=== PATIENT | female | born 1960 | race Caucasian/White ===

== ENCOUNTER 2021-03-24 14:59 | Outpatient (REF) | payer BC, SELFPAY | END 2021-03-24 15:00 | disposition home or self-care (01) | LOC: NCHCN 14:59 | PROVIDERS: PCP Family Medicine; Visit Provider Nurse Practitioner Family | DX: J02.9 Acute pharyngitis, unspecified (principal) | CPT/HCPCS: 87070 ==

== ENCOUNTER 2024-10-17 15:50 | Outpatient (CLI) | payer MEDICAID, SELFPAY ==
--- NOTE | 2024-10-17 11:35 | DI.RAD_ITS ---
Exam(s) XR TOE RT FIFTH EXAM: XR TOE RT FIFTH CLINICAL HISTORY: recurrent cellulitis, ? osteo,L03.031. TECHNIQUE: 2D digital imaging was performed. COMPARISON: No exams were available for comparison FINDINGS: BONES: No acute fracture is present. No bony destructive lesion is seen. JOINTS: No dislocation present. SOFT TISSUE: Normal soft tissue swelling of the 5th toe. No abnormal gas collection or foreign body. IMPRESSION: No plain film evidence of osteomyelitis. DATA REPOSITORY: RADIATION DOSE DELIVERED:
== END 2024-10-17 16:10 ==
PROVIDERS: PCP Nurse Practitioner Family; Visit Provider Family Medicine
DX: L03.031 Cellulitis of right toe (principal)
CPT/HCPCS: 73660

== ENCOUNTER 2024-11-14 16:30 | Emergency (ER) | payer BC, SELFPAY ==
[2024-11-14 16:33] VITALS: BP 164/114; PULSE 108; RESP 20; TEMP 37.1; O2SAT 95
[2024-11-14 16:38] VITALS: BP 164/114; PULSE 108; RESP 20; TEMP 37.1; O2SAT 95
--- NOTE | 2024-11-14 17:15 | DI.CT_ITS ---
Exam(s) CT ABDOMEN PELVIS W EXAM: CT ABDOMEN PELVIS W CLINICAL HISTORY: RUQ pain. TECHNIQUE: Imaging Protocol: Axial computed tomography images with coronal and sagittal reformatted images were created and reviewed CONTRAST MATERIAL: Intravenous: Omnipaque 350 Contrast volume:75 ml Oral: no COMPARISON: No exams were available for comparison FINDINGS: ABDOMEN and PELVIS: Lung Bases: No acute findings. Liver: Normal density. No suspicious mass. Gallbladder and biliary tract: No radiodense calculus. No wall thickening or pericholecystic fluid. No biliary dilation. Pancreas: Normal density. No abnormal calcifications or inflammatory process. No evidence of mass. Spleen: Normal. Kidneys: Normal size, contour and axis. No radiodense stones. No obstructive uropathy. No suspicious masses seen. Adrenal glands: No masses seen. Vasculature: Abdominal aorta non-dilated. Soft tissues: Small fat containing umbilical hernia. Bladder: No gross wall thickening. No calculi.No focal mass. Bowel: No obstruction. No bowel wall thickening. Appendix normal. The cecum projects some transversely toward the midline. This could indicate free mesenteric mobility. There are innumerable diverticula throughout the colon. Normal quantity of stool. Peritoneal cavity: No ascites. No focal collection. No mesenteric inflammatory response. No free air. Bones: Degenerative changes in the lower lumbar spine, greatest at L5-S1. There is mild spondylolisthesis at this level secondary to facet joint degenerative changes. Reproductive organs: Calcified uterine fibroid. Lymph nodes: No pathologically enlarged lymph nodes. IMPRESSION:: No acute abnormality in the abdomen or pelvis. The preliminary [facility] report was reviewed. RADIATION DOSE DELIVERED: 466.17mGy.cm Total DLP DATA REPOSITORY: All CT scans at this facility are submitted to the National Radiology Data Registry (NRDR) Dose Index Registry (DIR) with the [employer] (A[employer]). RADIATION OPTIMIZATION: All CT scans at this facility use at least one of these dose optimization techniques: automated exposure control; mA and/or kV adjustment per patient size (includes targeted exams where dose is matched to clinical indication); or iterative reconstruction.
--- NOTE | 2024-11-14 17:15 | RT.EKG_ITS ---
APPROVED REPORT Exam: Resting ECG Reason for Exam: epigastric pain Patient Location: E HR:85 bpm ECG Measurements Heart Rate 85 AXIS WA 178 P 44 QRSd 96 QRS 25 QT 360 T 6 QTc 428 Conclusion Sinus rhythm...normal P axis, V-rate 60- 99 Normal Electrocardiogram
[2024-11-14] MEDS: ACETAMINOPHEN 500 MG/50 ML BAG 200 MG IVPB (17:27)
[2024-11-14 17:43] LABS: Abs Immature Grans 0.01 10^3/uL (0.0-0.06); HCT 41.2 % (36.0-46.0); HGB 13.5 g/dL (11.2-15.7); Immature Grans % 0.2 %; MCH 31.5 pg (27.0-33.0); MCHC 32.8 % (32.0-36.0); MCV 96 fL (80-95); MPV 9.1 fL (8.0-11.0); Platelet Count 196 10^3/uL (130-400); RBC 4.28 10^6/uL (3.93-5.22); RDW 12.7 % (11.7-14.6); RDW-SD 45.0 fL; WBC 5.84 10^3/uL (4.4-10.8)
[2024-11-14 17:46] LABS: Glucose Negative (Negative)
[2024-11-14 17:53] LABS: C & S Indicated? No; WBC Negative HPF (0-5)
[2024-11-14 18:01] LABS: ALT 51 U/L (14-59); AST 29 U/L (15-37); Albumin 4.3 g/dL (3.4-5.0); Alkaline Phosphatase 47 U/L (46-116); Anion Gap 7.6 mmol/L (3-11); BUN 15 mg/dL (7-18); Bilirubin, Total 0.4 mg/dL (0.2-1.0); CO2 30.4 mmol/L (21.0-32.0); Calcium 9.5 mg/dL (8.5-10.1); Chloride 103 mmol/L (98-107); Estimated GFR 82.23 (mL/min/1.73m2); Glucose 105 mg/dL (74-106); Lipase 42 U/L (<78); Potassium 3.9 mmol/L (3.5-5.1); Sodium 141 mmol/L (136-145); Total Protein 7.6 g/dL (6.4-8.2)
[2024-11-14] MEDS: Normal Saline - Diluent 50 ML VIAL IJ (18:57)
[2024-11-14] MEDS: Normal Saline Flush 10 ML SYR IVP (18:57)
[2024-11-14] MEDS: Omnipaque 350 MG/ML 100 ML BTL IJ (18:58)
--- NOTE | 2024-11-14 19:27 | DI.[facility]_ITS ---
PROCEDURE INFORMATION: Exam: CT Abdomen And Pelvis With Contrast Exam date and time: 11/14/2024 6:55 PM Age: 64 years old Clinical indication: Abdominal pain; Localized; Right upper quadrant (ruq); Ruq pain TECHNIQUE: Imaging protocol: Computed tomography of the abdomen and pelvis with contrast. Radiation optimization: All CT scans at this facility use at least one of these dose optimization techniques: automated exposure control; mA and/or kV adjustment per patient size (includes targeted exams where dose is matched to clinical indication); or iterative reconstruction. Contrast material: OMNIPAQUE 350; Contrast volume: 75 ml; Contrast route: INTRAVENOUS (IV); COMPARISON: No relevant prior studies available. FINDINGS: Lungs: Lung bases clear. Liver: Small indeterminate hypoattenuating hepatic lesion, incompletely characterized but most likely a small cyst or hemangioma. Gallbladder and biliary ducts: Gallbladder partially collapsed. No calcified gallstones seen. No biliary dilatation. Pancreas: Normal appearing pancreas. Spleen: Normal appearing spleen. Adrenal glands: Normal appearing adrenal glands. Kidneys and ureters: Small indeterminate hypoattenuating renal lesions, not well characterized but statistically most likely renal cysts. No hydronephrosis. No obstructing ureteral stones. Stomach and bowel: No oral contrast. Stomach partially decompressed. No small bowel dilatation to suggest obstruction. Cecum located in the right mid abdomen suggesting free mobility on an independent mesentery. Extensive colonic diverticulosis. No evidence of diverticulitis or colitis. Appendix: Normal appendix. Intraperitoneal space: No gross ascites or free air. Vasculature: Normal caliber abdominal aorta. Lymph nodes: No pathologically enlarged mesenteric, retroperitoneal, or pelvic sidewall lymph nodes. Urinary bladder: Urinary bladder partially collapsed but grossly unremarkable, as seen. Reproductive: Normal-sized uterus. 2.3 cm calcified uterine leiomyoma. Normal-appearing left ovary. Right ovary partially obscured and not well evaluated but normal in size. Bones/joints: No acute fracture seen among the bones of the abdomen or pelvis. Moderate discogenic degeneration at L3-L4. Apparent spondylolysis on the left at L5 with minimal anterolisthesis of L5 on S1 and prominent degeneration of the L5-S1 disc. Apparent fusion across the right L5-S1 facet joint. Moderate-severe narrowing of the right L5-S1 neural foramen with deformity of the right L5 nerve root, image 44 of series 6. Soft tissues: Small fat containing ventral hernia at the umbilicus. IMPRESSION: 1. No acute bowel pathology demonstrated. Extensive colonic diverticulosis but no evidence of diverticulitis or colitis. 2. Small fat containing ventral hernia at the umbilicus. 3. Gallbladder partially decompressed. No calcified gallstones or biliary dilatation. Dictated and Authenticated by: Emile Knott MD. Orderin Karan Stringer MD
[2024-11-14 20:13] VITALS: PULSE 85; RESP 18; O2SAT 97
[2024-11-14 20:16] VITALS: PULSE 88; RESP 18; O2SAT 98
--- NOTE | 2024-11-14 23:14 | ED.GENADUL_ITS ---
Discharge Plan Disposition Patient Disposition: Home Condition: Stable Discharge Details Clinical Impression: Abdominal pain, acute, right upper quadrant Primary Care Provider: Kavya Medina ED Provider: Siomara Russo Home Meds and New Rx's Prescriptions: Continued lisinopril 20 mg tablet 20 mg PO DAILY Discharge Instructions Instructions: Diverticulosis (DC), Abdominal Pain, Adult ED Additional Instructions: please follow-up for ultrasound tomorrow, do not eat prior to US of your gallbladder you have diverticulosis, but no evidence of infection your labs look great, aside from a small amount of blood in your urine without evidence of infection please have urinalysis rechecked with your doctor in a few weeks tylenol as needed for pain recheck with pcp this week Referrals: Kavya Medina [Primary Care Provider, Medicine] Discharge Orders Other Ambulatory Orders: US abdomen limited (STAT) Timeframe: 20241115 Facility: [facility] - Location: DIAGNOSTIC IMAGING Ordered By: Siomara Russo Discharge Data Discharge Date/Time-TO BE ENTERED AT DEPARTURE: 11/14/24 20:16 HPI General Date/Time Provider Initiated Documentation: 11/14/24 17:02 . HPI Narrative: This 64-year-old female presents with right upper quadrant pain from [facility]. She states the pain has been present for approximately 3 days. She den ies any fever or chills. She denies any chest pain or shortness of breath. Denies history of similar concerns in the past. Denies any nausea or vomiting. States she has had some urinary frequency but denies blood in her urine. Did have some watery diarrhea this morning denies recent antibiotic use. Denies history of worsening symptoms with food or fluids. Denies increased pain with deep breathing. Related Data Home Medications ?Medication ?Instructions ?Recorded ?Confirmed lisinopril 20 mg tablet 20 mg PO DAILY 10/17/2411/30 Allergies Allergy/AdvReac Type Severity Reaction Status Date / Time No Known Allergies Allergy Unverified 11/14/24 15:54 General Stated Complaint: Abd Prob DESTINEY: 3 Exam Narrative Exam Narrative: Alert and oriented 64-year-old female in no acute distress, mild right flank tenderness and right upper quadrant tenderness on assessment no rebound or guarding lungs clear to auscultation no distress Course Vital Signs Vital signs: Vital Signs Temperature 37.1 C 11/14/24 16:33 Pulse 108 H 11/14/24 16:33 Respiratory Rate 20 11/14/24 16:33 Blood Pressure 164/114 H 11/14/24 16:33 Pulse Oximetry 95 11/14/24 16:33 Temperature 37.1 C 11/14/24 16:38 Temperature Source Oral 11/14/24 16:38 Pulse 88 11/14/24 20:16 Respiratory Rate 18 11/14/24 20:16 Blood Pressure 164/114 H 11/14/24 16:38 Blood Pressure Position Sitting 11/14/24 16:38 Pulse Oximetry 98 11/14/24 20:16 Oxygen Delivery Method Room Air 11/14/24 20:16 Oxygen Flow Rate 0 11/14/24 20:16 Pain Level 2 11/14/24 20:13 Lab/Test Results Lab/Test Results: 11/14/24 16:43 Urine - Clean Catch Urine Culture - Pending Laboratory Tests Range/Units 11/14/24 11/14/24 16:43 17:32 WBC (4.4-10.8) 10^3/uL 5.84 RBC (3.93-5.22) 10^6/uL 4.28 Hgb (11.2-15.7) g/dL 13.5 Hct (36.0-46.0) % 41.2 MCV (80-95) fL 96 H MCH (27.0-33.0) pg 31.5 MCHC (32.0-36.0) % 32.8 RDW (11.7-14.6) % 12.7 Plt Count (130-400) 10^3/uL 196 MPV (8.0-11.0) fL 9.1 Immature Gran % % 0.2 Neutrophils % % 63.6 Lymphocytes % % 27.6 Monocytes % % 7.4 Eosinophils % % 0.9 Basophils % % 0.3 Nucleated RBC % (0.0-0.3) % 0.0 Absolute Neutrophils (1.2-6.7) 10^3/uL 3.72 Absolute Lymphocytes (1.2-3.4) 10^3/uL 1.61 Absolute Monocytes (0.1-0.8) 10^3/uL 0.43 Absolute Eosinophils (0.0-0.7) 10^3/uL 0.05 Absolute Basophils (0.0-0.2) 10^3/uL 0.02 Sodium (136-145) mmol/L 141 Potassium (3.5-5.1) mmol/L 3.9 Chloride (98-107) mmol/L 103 Carbon Dioxide (21.0-32.0) mmol/L 30.4 Anion Gap (3-11) mmol/L 7.6 BUN (7-18) mg/dL 15 Creatinine (0.55-1.02) mg/dL 0.8 Est GFR (CKD-EPI 2020) (mL/min/1.73m2) 82.23 Glucose (74-106) mg/dL 105 Calcium (8.5-10.1) mg/dL 9.5 Total Bilirubin (0.2-1.0) mg/dL 0.4 AST (15-37) U/L 29 ALT (14-59) U/L 51 Alkaline Phosphatase (46-116) U/L 47 Total Protein (6.4-8.2) g/dL 7.6 Albumin (3.4-5.0) g/dL 4.3 Lipase (<78) U/L 42 Urine Color (Yellow) Yellow Urine Clarity (Clear) Clear Urine pH (5-8) 6.5 Ur Specific [place] (1.005-1.025) 1.010 Urine Protein (Neg-Trace) mg/dL Negative Urine Ketones (Negative) mg/dL Negative Urine Blood (Negative) Moderate H Urine Nitrite (Negative) Negative Urine Bilirubin (Negative) Negative Urine Urobilinogen (Up to 0.2) mg/dL 0.2 Ur Leukocyte Esterase (Negative) Negative Urine RBC (0-2) HPF 5-10 H Urine WBC (0-5) HPF Negative Ur Epithelial Cells (Negative) HPF Rare Urine Crystals (Negative) HPF Negative Urine Bacteria (Negative) HPF Negative Urine Casts (Negative) LPF Negative Urine Mucus (Negative) Negative Ur Culture Indicated? No Urine Glucose (Negative) mg/dL Negative Medical Decision Making EKG does not show evidence of acute ischemia, please see attending's recommendation, CT abdomen and pelvis shows small hernia diverticulosis without evidence of diverticulitis and a contracted gallbladder, no other acute abnormalities CBC within normal limits CMP within normal limits moderate blood in urine without evidence of infection this will be sent for culture. Lipase within normal limits Plan is to send patient for ultrasound of gallbladder tomorrow she is encouraged to refrain from eating prior to ultrasound for complete this. She is feeling marked improvement after IV acetaminophen administration. She is aware that she will need outpatient reassessment of her urinalysis as she does have blood present. The other findings on her CT scan are not likely the cause of her pain today. She is encouraged to take Tylenol as needed for discomfort and return earlier should she have new or worsening complaints. She is also encouraged to have her blood pressure rechecked by her primary care physician this is quite elevated today. Discharged home in stable condition [facility] All Active Problems (Updated 11/14/24 @ 20:01 by IAN Hairston) Abdominal pain, acute, right upper quadrant (Acute) Cellulitis of fifth toe, right (Acute) Essential hypertension (Acute) Cellulitis of fifth toe, right (Acute) Essential hypertension (Acute) Medical History Hypertension Sarcoidosis Surgical History Cervical Conization/LEEP Social History Smoking/Tobacco Use Status: Never Smoking risk assessment performed?: Yes Alcohol Intake: current Alcohol Intake frequency: 0-2 drinks per day Alcohol type: wine Drug use: Never Housing: house Do you feel safe at home: Yes Do you feel safe in your relationship?: Yes PAWSS Have you Been Recently Intoxicated or Drunk Within the Last 30 days?: No Have you Ever Experienced Previous Episodes of Alcohol Withdrawal?: No Have you ever Experienced Withdrawal Seizures?: No Have you ever Experienced Delirium Tremens(DT)s?: No Have you ever undergone Alcohol Rehabilitation Treatment (i.e, inpt ot outpatient treatment programs)?: No Have you ever Experienced Blackouts?: No Have you ever Combined Alcohol with other Downers within the last 90 days?: No Have you ever Combined Alcohol with any other Substance of Abuse during the last 90 days?: No Positive Blood Alcohol level on Presentation? [PCS.BAL]: No Evidence of Increased Autonomic Activity (i.e. HR>120, tremor, sweating, agitation, nausea)?: No Result: 0
--- NOTE | 2024-11-16 09:45 | NUR.NOTE ---
Accessed Pt chart to see if PT was prescribed any antibiotics. She was not. This was documented on the Specimen Report and given to the providers.
--- NOTE | 2024-11-16 09:50 | W.ED.FU ---
Date of service: 11/16/24 Time of Service: 09:50 Follow Up Plan: I received an abnormal result from microbiology, urine culture obtained 11/14 positive for less than 10,000 colonies of gram-positive anshu. On review of the chart this patient was seen for gastritis/gallbladder pathology, had hematuria but no evidence of renal stones, no infectious findings on urinalysis. Given the lack of concerning symptoms and the reassuring urinalysis, as well as this culture showing likely anshu contaminants, no action required, patient does not require antibiosis, was counseled by the ED provider for follow-up urinalysis with her outpatient providers. Afshan Frazier MD
== END 2024-11-14 20:16 | disposition home or self-care (01) ==
PROVIDERS: Emergency Provider Physician Assistant; PCP Family Medicine
DX: R10.11 Right upper quadrant pain (principal)
CPT/HCPCS: 80053; 83690; 93005; 96365; 99285; 74177; 81003; 81015; 85025; 87086; 93010; 99283; J0131; J3490

== ENCOUNTER 2024-11-15 08:42 | Emergency (ER) | payer BC, SELFPAY ==
[2024-11-15 08:50] VITALS: BP 158/90; PULSE 92; RESP 16; TEMP 36.8; O2SAT 95
--- NOTE | 2024-11-15 09:18 | W.ED.GENAD ---
Discharge Plan Disposition Patient Disposition: Home Condition: Stable Discharge Details Clinical Impression: Gastritis Primary Care Provider: Deysi Salvador ED Provider: Andrea Aguila Home Meds and New Rx's Prescriptions: No Action lisinopril 20 mg tablet 20 mg PO DAILY lisinopril 20 mg tablet 20 mg PO DAILY Patient Comments: TAKE ONE TABLET BY MOUTH EVERY MORNING Discharge Instructions Instructions: Gastritis ED Additional Instructions: You were seen in the emergency department last night for your abdominal pain and returned this morning for ultrasound of the right upper quadrant to check out your gallbladder, there is no gallstone or other pathology seen on your ultrasound, your story is more consistent with a gastritis as we discussed. Please take [id number] famotidine twice a day for 2 to 3 weeks to see if this improves your symptoms, you can follow-up with general surgery on an outpatient basis for upper endoscopy, please return to the emergency department for any emergent concerns. Referrals: Deysi Salvador [Primary Care Provider, Medicine] Discharge Data Discharge Date/Time-TO BE ENTERED AT DEPARTURE: 11/15/24 09:50 HPI General Date/Time Provider Initiated Documentation: 11/15/24 08:54. HPI Narrative: 64 year-old female presents to ED today by POV/ambulating with a chief complaint of f/u from DI results of an ultrasound RUQ ABD with onset of RUQ pain yesterday. Quality described as generalized RUQ abdominal pain, nausea, no radiation to active vomiting, fever, flank pain, dysuria, chest pain, shortness of breath. Severity is described as moderate. Palliating factors include nothing specific attempted. Provoking factors include worse after eating. Patient not anticoagulated. Related Data Home Medications ?Medication ?Instructions ?Recorded ?Confirmed lisinopril 20 mg tablet 20 mg PO DAILY 10/17/24 11/14/24 lisinopril 20 mg tablet 20 mg PO DAILY 11/15/24 11/15/24 Allergies Allergy/AdvReac Type Severity Reaction Status Date / Time No Known Allergies Allergy Unverified 11/15/24 09:47 General Stated Complaint: Recheck DESTINEY: 4 Review of Systems All systems reviewed & are unremarkable except as noted in HPI and below Exam Narrative Exam Narrative: GENERAL APPEARANCE: Well-nourished, non-toxic, awake and alert, atraumatic, no acute distress. SKIN: Warm, pink, dry, intact, without rashes/lesions/ulcerations. HEAD: Normocephalic, atraumatic, normal hair distribution for gender/age. EYES: Normal conjunctiva, no exudates on lids/lashes. ENT: Nares patent, no circumoral cyanosis, no facial swelling NECK: Supple, trachea midline, painless cervical ROM. LUNGS/CHEST: Lungs CTA bilaterally, non-labored respirations, normal A/P diameter, symmetrical expansion, no chest wall deformity HEART (CV/PV): Regular rate and rhythm without murmur, no peripheral edema, no JVD. ABDOMEN: Soft, non-distended, no guarding, RUQ tenderness, negative Mccabe's sign. MSK: Normal ROM, no swelling/deformity to bilateral UEs or LEs, moving all extremities without weakness, no cyanosis, spine midline without tenderness, normal curvature. NEURO: Mental Status AAOx4 - alert to person, place, time, events No facial droop, no forehead involvement. Motor: No focal weakness - strength 5/5 in bilateral UEs and LEs, proximal and distal, symmetric. Sensory: sensation intact to light touch globally. Gait normal: patient ambulated without ataxia into ED room. PSYCH: euthymic, cooperative, pleasant, appropriate speech Course Vital Signs Vital signs: Vital Signs Temperature 36.8 C 11/15/24 08:50 Pulse 92 H 11/15/24 08:50 Respiratory Rate 16 11/15/24 08:50 Blood Pressure 158/90 H 11/15/24 08:50 Pulse Oximetry 95 11/15/24 08:50 Temperature 36.8 C 11/15/24 08:50 Temperature Source Oral 11/15/24 08:50 Pulse 92 H 11/15/24 08:50 Respiratory Rate 16 11/15/24 08:50 Blood Pressure 158/90 H 11/15/24 08:50 Pulse Oximetry 95 11/15/24 08:50 Oxygen Delivery Method Room Air 11/15/24 08:50 Oxygen Flow Rate 0 11/15/24 08:50 Medical Decision Making This dictation utilizes [id number] dictation software and may contain unedited grammatical errors. 64 year-old female presents to ED today by POV/ambulating with a chief complaint of f/u from DI results of an ultrasound RUQ ABD with onset of RUQ pain yesterday. Quality described as generalized RUQ abdominal pain, nausea, no radiation to active vomiting, fever, flank pain, dysuria, chest pain, shortness of breath. Severity is described as moderate. Palliating factors include nothing specific attempted. Provoking factors include worse after eating. Patients' medical history: Gastritis, hypertension. Family and social history: Noncontributory. Pertinent exam findings / vital signs include mild right upper quadrant tenderness. Differential / pathologies of concern include gastritis, biliary colic. Diagnostic studies of: - Reviewed negative workup last night, ultrasound today is negative. Interventions of: - Recommend OTC famotidine for 2 to 3 weeks BID. ED Course/Assessment/Plan: 64-year-old female presents with right upper quadrant abdominal pain worse after eating, had a negative CT last night, negative ultrasound this morning, story more consistent with gastritis, recommend OTC famotidine for 2 to 3 weeks if with possible referral for upper endoscopy at some point in the near future, strict return criteria for any intractable nausea or vomiting, severe increased pain especially fever or any other emergent concerns. Findings not consistent with choledocholithiasis, cholelithiasis, cholecystitis, perforated viscus, acute abdomen. Disposition of gastritis. Patient verbalized understanding of the plan and return to ED criteria and engaged in shared decision making. Medical Records Medical records reviewed: Yes I reviewed the patient's medical records. Imaging Data Radiologic Study: Attestation: I personally reviewed and interpreted this imaging study as follows: Imaging: Ultrasound Radiologist's impression: EXAM: US ABDOMEN LIMITED CLINICAL HISTORY: ACUTE RUQ pain, R10.11 TECHNIQUE: Ultrasound of the right upper quadrant performed using standard protocol. COMPARISON: CT CT ABDOMEN PELVIS W from 11/14/2024 FINDINGS: LIVER: Normal size. Mild hepatic steatosis.. No focal liver lesions are seen.. GALLBLADDER: No evidence of cholelithiasis. No evidence of wall thickening. No pericholecystic fluid identified. MCCABE'S SIGN: Negative. BILIARY SYSTEM: No intrahepatic or extrahepatic biliary ductal dilation. RIGHT KIDNEY: Normal size. No evidence of renal calculi. No evidence of hydronephrosis. No suspicious renal mass. No cyst identified. PANCREAS: Normal where visualized. ABDOMINAL AORTA AND IVC: Visualized portions normal caliber. ASCITES: None seen. IMPRESSION: Normal sonographic appearance of the right upper quadrant. PFSH All Active Problems (Updated 11/15/24 @ 09:47 by Judie Mcgovern) Abdominal pain, acute, right upper quadrant (Acute) Gastritis (Acute) Cellulitis of fifth toe, right (Acute) Essential hypertension (Acute) Cellulitis of fifth toe, right (Acute) Essential hypertension (Acute) Medical History (Updated 11/15/24 @ 09:47 by Judie Mcgovern) Hypertension Sarcoidosis Surgical History (Updated 11/15/24 @ 09:47 by Judie Mcgovern) Cervical Conization/LEEP Social History (System 11/15/24 @ 09:47 by Judie Mcgovern) Smoking/Tobacco Use Status: Never Smoking risk assessment performed?: Yes Alcohol Intake: current Alcohol Intake frequency: 0-2 drinks per day Alcohol type: wine Drug use: Never Housing: house Do you feel safe at home: Yes Do you feel safe in your relationship?: Yes
== END 2024-11-15 09:50 | disposition home or self-care (01) ==
PROVIDERS: Emergency Provider Physician Assistant; PCP Nurse Practitioner Family
DX: K29.70 Gastritis, unspecified, without bleeding; R10.11 Right upper quadrant pain
CPT/HCPCS: 99283; 99282

== ENCOUNTER 2024-12-04 17:19 | Outpatient (REF) | payer BC, SELFPAY ==
[2024-12-04 21:28] LABS: Glucose Negative (Negative)
== END 2024-12-04 17:20 | disposition home or self-care (01) ==
LOC: NCHCN 17:19
PROVIDERS: PCP Family Medicine; Visit Provider Family Medicine
DX: N15.9 Renal tubulo-interstitial disease, unspecified (principal)
CPT/HCPCS: 81003